=== PATIENT | male | born 1960 | race Caucasian/White ===

== ENCOUNTER 2018-01-16 07:20 | Emergency (ER) | payer BC ==
[2018-01-16] MEDS: ASPIRIN 81 MG CHEW TABLET PO (08:01)
[2018-01-16 08:05] LABS: BASO # 0.1 10^3/uL (0.0-0.2); BASO % 0.9 % (0.0-1.0); EOS # 0.2 10^3/uL (0.0-0.50); EOS % 3.4 % (0.0-3.0); HEMOGLOBIN 14.5 g/dl (13.5-17.5); IMMATURE GRANULOCYTE % 0.2 % (0-3.0); LYMPH # 1.8 10^3/uL (1.5-4.5); LYMPH % 32.2 % (24.0-44.0); MEAN CORPUSCULAR HEMOGLOBIN 30.7 pg (27.0-33.0); MEAN CORPUSCULAR HGB CONC 35.4 g/dl (32.0-36.5); MEAN CORPUSCULAR VOLUME 86.7 fl (80.0-96.0); MONO # 0.5 10^3/uL (0.0-0.8); MONO % 8.1 % (0.0-5.0); NEUTROPHILS # 3.1 10^3/uL (1.8-7.7); NEUTROPHILS % 55.2 % (36.0-66.0); PLATELET COUNT, AUTOMATED 242 10^3/uL (150-450); RED BLOOD COUNT 4.73 10^6/uL (4.30-6.10); WHITE BLOOD COUNT 5.7 10^3/uL (4.0-10.0)
[2018-01-16 08:15] LABS: INR 1.09; PROTHROMBIN TIME 14.2 SECONDS (12.1-14.4)
[2018-01-16 08:16] LABS: PARTIAL THROMBOPLASTIN TIME 29.2 SECONDS (25.4-37.6)
[2018-01-16 08:24] LABS: ALBUMIN 3.7 GM/DL (3.2-5.2); ALBUMIN/GLOBULIN RATIO 1.28 (1.00-1.93); ALKALINE PHOSPHATASE 62 U/L (45-117); ALT/SGPT 36 U/L (12-78); AST/SGOT 19 U/L (7-37); BILIRUBIN,DIRECT 0.1 MG/DL (0.0-0.2); BILIRUBIN,TOTAL 0.6 MG/DL (0.2-1.0); LIPASE 102 U/L (73-393); TOTAL PROTEIN 6.6 GM/DL (6.4-8.2)
[2018-01-16 08:26] LABS: ANION GAP 6 MEQ/L (8-16); BLOOD UREA NITROGEN 21 MG/DL (7-18); CALCIUM LEVEL 8.6 MG/DL (8.5-10.1); CARBON DIOXIDE LEVEL 27 MEQ/L (21-32); CHLORIDE LEVEL 108 MEQ/L (98-107); CPK CREATINE PHOSPHOKINASE 154 U/L (39-308); CREATININE FOR GFR 1.18 MG/DL (0.70-1.30); GLOMERULAR FILTRATION RATE > 60.0 (>56); GLUCOSE, FASTING 103 MG/DL (70-100); MB/CK RELATIVE INDEX 1.17 (< OR =4); POTASSIUM SERUM 4.2 MEQ/L (3.5-5.1); SODIUM LEVEL 141 MEQ/L (136-145); TROPONIN I < 0.02 NG/ML (< 0.10)
[2018-01-16] MEDS ORDERED: ISOVUE-370 76% 100ML VIAL (Q9967) As Ordered (09:24)
[2018-01-16 13:59] LABS: CPK CREATINE PHOSPHOKINASE 136 U/L (39-308); MB/CK RELATIVE INDEX 1.25 (< OR =4); TROPONIN I < 0.02 NG/ML (< 0.10)
[2018-01-16] MEDS: CLOPIDOGREL 300 MG TAB (PLAVIX) PO (14:29)
[2018-01-16] MEDS: ENOXAPARIN 100MG/1ML SYRINGE (J1650) SC (14:30)
== END 2018-01-16 15:25 | disposition short-term general hospital (02) ==
LOC: M ED 07:20
DX: I20.0 Unstable angina (principal); R00.1 Bradycardia, unspecified; I45.19 Other right bundle-branch block; Z87.891 Personal history of nicotine dependence; Z88.0 Allergy status to penicillin
CPT/HCPCS: Q9967

== ENCOUNTER 2018-10-18 13:07 | Day surgery (SDC) | payer BC ==
[~2018-10-18] VITALS: Ht 184.2 cm; Wt 123.6 kg
[~2018-10-18 13:07] MED LIST: AMLO10TA5 PO; ASPI81TA26 PO; LR 1,000 ML IV ONE; VANCOMYCIN HCL 1,000 MG, VIAL MATE ADAPTER 1 EACH in D5W 250 ML IV ONE
[2018-10-18] MEDS ORDERED: fentaNYL 100 MCG/2 ML INJECTION (J3010) As Ordered ONE (15:00)
[2018-10-18] MEDS ORDERED: ONDANSETRON 4MG/2ML VIAL (J2405) As Ordered ONE (15:00)
[2018-10-18] MEDS ORDERED: PROPOFOL 200 MG/20 ML VIAL As Ordered ONE (15:00)
[2018-10-18] MEDS ORDERED: LIDOCAINE 2% INJ 100 MG/5 ML SDV (FOR ANES.) As Ordered ONE (15:00)
[2018-10-18] MEDS ORDERED: MIDAZOLAM INJ 2 MG/2 ML VIAL (J2250) As Ordered ONE (15:02)
[2018-10-18] MEDS ORDERED: LIDOCAINE 1% SDV INJ 30 ML VIAL As Ordered ONE (15:53)
--- NOTE | 2018-10-18 16:36 | RO ---
DATE OF PROCEDURE: 10/18/2018 PREPROCEDURE DIAGNOSIS: Cryptogenic stroke. POSTPROCEDURE DIAGNOSIS: Cryptogenic stroke. FINDINGS: Cryptogenic stroke. PROCEDURE PERFORMED: Implantation of a [employer] implantable loop recorder. SURGEON: Dejon Dill MD COIL ASSEMBLER: None. ANESTHESIA: Lidocaine 1% local/monitored anesthetic care. No specimens. ESTIMATED BLOOD LOSS: Less than 1 mL. No blood products replaced. No drains. No complications. DESCRIPTION OF PROCEDURE: The patient was prepped and draped over the sternum and left anterior chest. Lidocaine 1% was used for local anesthetic. A #15 blade was used to make an incision approximately 1 cm in length through the skin at approximately the left 4th interspace 1 inch lateral to the left parasternal border. The guide and insertion tool was placed into the incision and advanced parallel to the ribcage in the subcutaneous fat in a left lateral-caudal direction. The insertion tool was rotated 180 degrees. The punch was then used to advance the implantable loop recorder into the subcutaneous fat. The punch was removed, and then the insertion tool was removed leaving the loop recorder behind. The initial R wave amplitude measured 0.67 millivolts. Next, a #4-0 Biosyn suture was used as a temporary suture to help approximate the skin edges by running a subcuticular stitch through the length of the incision with the free ends of the suture protruding a centimeter from either end of the incision line. Next, three layers of Dermabond was applied. The Biosyn suture was then pulled through the incision and removed entirely. The patient tolerated the procedure well without any immediate complications. The implantable loop recorder implanted was a [employer] LINQ model LNQ11 with serial number [id number].
[2018-10-18 16:50] VITALS: BP 119/72
[2018-10-18] MEDS ORDERED: ACETAMINOPHEN TAB 650MG DOSE (2X325MG) PO PRN (17:00)
[2018-10-18] MEDS ORDERED: PERCOCET 5MG/325MG TAB PO PRN (17:00)
[2018-10-18] MEDS ORDERED: fentaNYL 100 MCG/2 ML INJECTION (J3010) IV PRN (17:00)
[2018-10-18] MEDS ORDERED: HYDROMORPHONE HCL 0.5 MG/ 0.5 ML SYRINGE (J1170 PER 1) IV PRN (17:00)
[2018-10-18] MEDS ORDERED: LR 1,000 ML IV SCH (17:00)
== END 2018-10-18 17:00 | disposition home or self-care (01) ==
LOC: M SDC 13:07
PROVIDERS: ATTEND Internal Medicine Cardiovascular Disease
DX: I63.9 Cerebral infarction, unspecified (principal); I10 Essential (primary) hypertension; K21.9 Gastro-esophageal reflux disease without esophagitis; Z86.73 Personal history of transient ischemic attack (TIA), and cerebral infarction without residual deficits; G47.30 Sleep apnea, unspecified; Z88.0 Allergy status to penicillin; Z79.82 Long term (current) use of aspirin; Z79.899 Other long term (current) drug therapy
CPT/HCPCS: 33285; C1764; J2250; J2405; J3010; J3370

== ENCOUNTER 2018-10-31 12:33 | Day surgery (SDC) | payer BC ==
[~2018-10-31] VITALS: Ht 182.9 cm; Wt 122.9 kg
[~2018-10-31 12:33] MED LIST changes: -LR 1,000 ML IV ONE; -VANCOMYCIN HCL 1,000 MG, VIAL MATE ADAPTER 1 EACH in D5W 250 ML IV ONE
[2018-10-31] MEDS ORDERED: LIDOCAINE VISCOUS 2% SOLN 15ML UDC As Ordered ONE (14:11)
[2018-10-31] MEDS ORDERED: MIDAZOLAM INJ 2 MG/2 ML VIAL (J2250) As Ordered ONE ×4 (14:12→14:29)
[2018-10-31 15:10] VITALS: BP 141/89
--- NOTE | 2018-10-31 15:16 | T-ECHO ---
DATE OF PROCEDURE: 10/31/2018 REFERRING PHYSICIAN: PREPROCEDURE DIAGNOSIS: Cryptogenic stroke. POSTPROCEDURE DIAGNOSIS: Cryptogenic stroke. INDICATION: Cryptogenic stroke. PRINCIPAL FINDINGS: Normal transesophageal echocardiogram. Bubble study negative for detection of intracardiac shunting or extracardiac shunting. PROCEDURE PERFORMED: Transesophageal echocardiogram with bubble study. PROCEDURE PERFORMED BY: Dejon Dill MD DATA DELIVERABLES MANAGER: None. ANESTHESIA/IV SEDATION: COMPLICATIONS: None. PROCEDURE DESCRIPTION: Rhythm was sinus. Patient received viscous lidocaine to gargle and swallow. He received a total of midazolam 6 mg IV for IV conscious sedation. The patient tolerated the procedure well without any immediate complications. Esophageal intubation was accomplished by Dr. Dill using a 3-dimensional Atkins transesophageal echocardiogram probe. The left and right ventricles appeared normal in size and systolic function. Left ventricular ejection fraction was 65% by visual estimate. The atria did not appear to be enlarged. No masses or thrombi were seen within the atria or other appendages. No intracardiac masses. Atrial septum was intact anatomically and by color flow Doppler. A bubble study was performed using 8 mL of normal saline with 1 mL of the patient's own blood and 1 mL of air, which was then agitated back and forth between two 10 mL syringes via a three way stopcock. The entire amount was then injected via a right antecubital vein and Valsalva maneuver was performed. I had the patient perform the Valsalva maneuver several times, as well as cough several times. No bubbles were seen entering into the left atrium or the left ventricle. No bubbles were seen traversing across the intraatrial septum. Aortic valve was 3-cusp and was structurally functional. No aortic regurgitation. Mitral leaflets were structural and functional. Mild mitral regurgitation within normal limits was present. Tricuspid leaflets were normal. Tricuspid regurgitation was not seen. Pulmonic valve was normal. Mild pulmonic regurgitation within normal limits. No pericardial effusion. Distal aortic arch and descending thoracic aorta were normal. CONCLUSIONS: 1. Normal transesophageal echocardiogram. 2. Bubble study negative for detection of intracardiac shunting. 3. Normal left and right ventricle systolic function. Left ventricular ejection fraction 65% by visual estimate. 4. No atherosclerotic plaque or abnormalities seen in the distal aortic arch and descending thoracic aorta. [facility]
== END 2018-10-31 15:29 | disposition home or self-care (01) ==
LOC: M OPP 12:33
PROVIDERS: ATTEND Internal Medicine Cardiovascular Disease
DX: I63.9 Cerebral infarction, unspecified (principal); R94.31 Abnormal electrocardiogram [ECG] [EKG]; R00.2 Palpitations; I10 Essential (primary) hypertension; G47.30 Sleep apnea, unspecified; K21.9 Gastro-esophageal reflux disease without esophagitis; E66.9 Obesity, unspecified; Z71.3 Dietary counseling and surveillance; Z88.0 Allergy status to penicillin; Z79.82 Long term (current) use of aspirin; Z79.899 Other long term (current) drug therapy
CPT/HCPCS: 93312; 93320; 93325; J2250

== ENCOUNTER → 2020-09-24 | Outpatient (REF) | payer BC ==
[~2020-09-24] MED LIST changes: -AMLO10TA5 PO; +AMLO1TAB25 PO
== END ==
LOC: M SFHCRHEU 11:00
PROVIDERS: ATTEND Internal Medicine
DX: R21 Rash and other nonspecific skin eruption (principal)

== ENCOUNTER → 2020-12-25 | Outpatient (REF) | payer BC ==
[2020-12-25 16:15] LABS: BASO % 0.5 % (0.0-1.0); EOS # 0.1 10^3/uL (0.0-0.5); EOS % 1.6 % (0.0-3.0); HEMATOCRIT 44.4 % (42.0-52.0); LYMPH # 1.4 10^3/uL (1.5-5.0); LYMPH % 24.8 % (24.0-44.0); MEAN CORPUSCULAR HEMOGLOBIN 32.3 pg (27.0-33.0); MEAN CORPUSCULAR HGB CONC 33.8 g/dl (32.0-36.5); MEAN CORPUSCULAR VOLUME 95.5 fl (80.0-96.0); MONO # 0.5 10^3/uL (0.0-0.8); MONO % 8.8 % (2.0-8.0); NEUTROPHILS # 3.6 10^3/uL (1.5-8.5); NEUTROPHILS % 64.1 % (36.0-66.0); PLATELET COUNT, AUTOMATED 261 10^3/uL (150-450); RED BLOOD COUNT 4.65 10^6/uL (4.30-6.10); WHITE BLOOD COUNT 5.7 10^3/uL (4.0-10.0)
[2020-12-25 16:40] LABS: ALBUMIN 3.8 GM/DL (3.2-5.2); ALT/SGPT 48 U/L (12-78); BILIRUBIN,DIRECT 0.2 MG/DL (0.0-0.2); BILIRUBIN,TOTAL 0.7 MG/DL (0.2-1.0); BLOOD UREA NITROGEN 18 MG/DL (7-18); C REACTIVE PROTEIN QUANTITATIV 0.37 MG/DL (0.00-0.30); CALCIUM LEVEL 8.5 MG/DL (8.8-10.2); CARBON DIOXIDE LEVEL 27 MEQ/L (21-32); CHLORIDE LEVEL 107 MEQ/L (98-107); CREATININE FOR GFR 1.15 MG/DL (0.70-1.30); GLOMERULAR FILTRATION RATE > 60.0 (>49); GLUCOSE, FASTING 87 MG/DL (70-100); POTASSIUM SERUM 4.3 MEQ/L (3.5-5.1); SODIUM LEVEL 141 MEQ/L (136-145); TOTAL PROTEIN 6.9 GM/DL (6.4-8.2); URIC ACID 6.1 MG/DL (3.5-7.2)
[2020-12-25 16:49] LABS: ERYTHROCYTE SEDIMENTATION RATE 8 mm/hr (0-20)
== END ==
LOC: M SFHCRHEU 12:18
PROVIDERS: ATTEND Internal Medicine
DX: M1A.0790 Idiopathic chronic gout, unspecified ankle and foot, without tophus (tophi) (principal); M06.09 Rheumatoid arthritis without rheumatoid factor, multiple sites

== ENCOUNTER → 2021-09-08 | Outpatient (REF) | payer BC ==
[2021-09-08 17:09] LABS: ALBUMIN 3.8 GM/DL (3.2-5.2); BILIRUBIN,DIRECT 0.2 MG/DL (0.0-0.2); BILIRUBIN,TOTAL 0.7 MG/DL (0.2-1.0); CALCIUM LEVEL 9.3 MG/DL (8.8-10.2); CREATININE FOR GFR 1.42 MG/DL (0.70-1.30); GLOMERULAR FILTRATION RATE 53.8 (>49); POTASSIUM SERUM 4.3 MEQ/L (3.5-5.1); TOTAL PROTEIN 6.8 GM/DL (6.4-8.2)
== END ==
LOC: M SFHCRHEU 11:48
PROVIDERS: ATTEND Internal Medicine
DX: R79.89 Other specified abnormal findings of blood chemistry (principal); R74.8 Abnormal levels of other serum enzymes

== ENCOUNTER → 2022-08-16 | Outpatient (REF) | payer BC | LOC: M SFHCRHEU 12:39 | PROVIDERS: ATTEND Internal Medicine | DX: M1A.0790 Idiopathic chronic gout, unspecified ankle and foot, without tophus (tophi) (principal) ==

== ENCOUNTER → 2023-01-12 | Outpatient (REF) | payer BC ==
[2023-01-12 17:47] LABS: URIC ACID 4.2 MG/DL (3.7-9.2)
[2023-01-12 17:49] LABS: C REACTIVE PROTEIN QUANTITATIV < 0.40 MG/DL (<1.0)
[2023-01-12 17:51] LABS: ALKALINE PHOSPHATASE 50 U/L (46-116); ALT/SGPT 63 U/L (7.0-40); AST/SGOT 42 U/L (<34); BILIRUBIN,DIRECT 0.2 MG/DL (<0.4); BILIRUBIN,TOTAL 0.6 MG/DL (0.3-1.2); BLOOD UREA NITROGEN 27 MG/DL (9-23); CALCIUM LEVEL 8.7 MG/DL (8.3-10.6); CARBON DIOXIDE LEVEL 26 MMOL/L (20-31); CHLORIDE LEVEL 109 MMOL/L (98-107); CREATININE FOR GFR 1.41 MG/DL (0.70-1.30); GLOMERULAR FILTRATION RATE 53.9 (>49); GLUCOSE, FASTING 100 MG/DL (74-106); POTASSIUM SERUM 4.2 MMOL/L (3.5-5.1); SODIUM LEVEL 143 MMOL/L (136-145); TOTAL PROTEIN 6.6 G/DL (5.7-8.2)
== END ==
LOC: M SFHCRHEU 12:56
PROVIDERS: ATTEND Internal Medicine
DX: M1A.0790 Idiopathic chronic gout, unspecified ankle and foot, without tophus (tophi) (principal); R74.8 Abnormal levels of other serum enzymes; R79.89 Other specified abnormal findings of blood chemistry